=== PATIENT | male | born 1940 | race Caucasian/White ===

== ENCOUNTER 2019-03-19 09:25 | Observation (INO) | payer MEDICARE, BC ==
[2019-03-19] MEDS ORDERED: LORAZEPAM 2 MG/ML SOL IV ONE (10:06)
[2019-03-19] MEDS ORDERED: LEVETIRACETAM (PREMIX) 1 GM 1 GM/100 ML SOL IV ONE ×2 (10:06→10:09)
[2019-03-19] MEDS ORDERED: LORAZEPAM 2 MG/ML SOL ONE (10:09)
[2019-03-19 10:32] LABS: BASOPHILS % (AUTO) 1 % (0-3); EOSINOPHILS % (AUTO) 2 % (0-9); HEMATOCRIT 43 % (39-53); HEMOGLOBIN 14.4 gm/dl (13.5-17.7); LYMPHOCYTES % (AUTO) 8.6 % (10-50); MEAN CORPUSCULAR HEMOGLOBIN 32.9 pg (27.0-32.0); MEAN CORPUSCULAR HGB CONC 33.2 gm/dl (32.0-36.0); MONOCYTES % (AUTO) 6.7 % (0-12); NEUTROPHILS % (AUTO) 82.3 % (37-80)
[2019-03-19 10:33] LABS: MEAN CORPUSCULAR VOLUME 99 fL (80-100)
[2019-03-19 10:38] LABS: ALBUMIN 3.6 gm/dl (3.4-5.0); BILIRUBIN,TOTAL 0.7 mg/dl (0.2-1.0); CALCIUM 8.8 mg/dl (8.5-10.1); CARBON DIOXIDE 27.6 mEq/L (21-32); CREATININE 1.49 mg/dl (0.80-1.30); MAGNESIUM 2.1 mg/dl (1.8-2.4); TOTAL PROTEIN 7.4 gm/dl (6.4-8.2)
[2019-03-19 11:22] LABS: APPEARANCE,URINE Clear; BILIRUBIN,URINE NEGATIVE (NEGATIVE); COLOR,URINE Yellow; GLUCOSE, URINE (UA) NEGATIVE (NEGATIVE); KETONES,URINE NEGATIVE (NEGATIVE); LEUKOCYTE ESTERASE ,URINE NEGATIVE (NEGATIVE); NITRATE,URINE NEGATIVE (NEGATIVE); OCCULT BLOOD,URINE TRACE INTACT (NEG-TRACE); PH,URINE 6.5; UROBILINOGEN,URINE 0.2 (0.2-1.0 EU)
[2019-03-19 11:37] LABS: BACTERIA TRACE (< 1+); CRYSTALS NEGATIVE (0-3 AVE/HPF); EPITHELIAL CELLS 0-1 (SQUAMOUS); WBC,URINE 0-2 (0-5AV/HPF)
[2019-03-19] MEDS ORDERED: SODIUM CHLORIDE 0.9% FLUSH 10 ML SOL IV SCH (19:00)
[2019-03-19 20:03] VITALS: RESP 16
[2019-03-19] MEDS ORDERED: SIMVASTATIN 20 MG TAB PO SCH (21:00)
[2019-03-19] MEDS: METOPROLOL TARTRATE 25 MG TAB PO SCH (21:10)
[2019-03-19] MEDS: LEVETIRACETAM 250 MG TAB PO SCH (21:11)
[2019-03-19] MEDS: SODIUM CHLORIDE 0.9% FLUSH 10 ML SOL IV SCH (21:29)
[2019-03-20] MEDS: SODIUM CHLORIDE 0.9% FLUSH 10 ML SOL IV SCH (06:23)
[2019-03-20 08:05] VITALS: BP 104/58; PULSE 61; TEMP 98; O2SAT 95
[2019-03-20] MEDS: METOPROLOL TARTRATE 25 MG TAB PO SCH (08:09)
[2019-03-20] MEDS: LEVETIRACETAM 250 MG TAB PO SCH (08:09)
[2019-03-20] MEDS ORDERED: PNEUMOC 13-VAL CONJ-DIP CRM/PF 0.5 ML SYRINGE IM ONE (08:21)
[2019-03-20] MEDS ORDERED: LISINOPRIL 5 MG TAB PO SCH (09:00)
[2019-03-20] MEDS ORDERED: ASPIRIN EC 81 MG PO SCH (09:00)
== END 2019-03-20 10:35 | disposition home or self-care (01) | DRG 101 ==
LOC: ED 09:25 → UNDOADMOB 14:28 → ACUTE CARE 14:28
PROVIDERS: ADMIT Family Medicine; ATTEND Family Medicine
DX: G40.801 Other epilepsy, not intractable, with status epilepticus (principal); R41.82 Altered mental status, unspecified; R40.2362 Coma scale, best motor response, obeys commands, at arrival to emergency department; R40.2142 Coma scale, eyes open, spontaneous, at arrival to emergency department; R40.2242 Coma scale, best verbal response, confused conversation, at arrival to emergency department; R47.1 Dysarthria and anarthria; R47.02 Dysphasia
CPT/HCPCS: 36415; 70450; 80053; 81001; 82962; 83735; 85025; 90670; 93005; 93012; 96374; 99217; 99220; 99285; J2060; A9270-GY; G0008; J1953

== ENCOUNTER 2019-03-20 19:45 | Emergency (ER) | payer MEDICARE, BC ==
[2019-03-20 20:32] LABS: APPEARANCE,URINE Cloudy; BILIRUBIN,URINE 1+ (NEGATIVE); COLOR,URINE Brown; GLUCOSE, URINE (UA) NEGATIVE (NEGATIVE); KETONES,URINE TRACE (NEGATIVE); LEUKOCYTE ESTERASE ,URINE 3+ (NEGATIVE); NITRATE,URINE POSITIVE (NEGATIVE); OCCULT BLOOD,URINE 3+ (NEG-TRACE); PH,URINE >=9.0
[2019-03-20 20:48] LABS: BACTERIA 4+ (< 1+); CRYSTALS 4-8 TRIPLE PHOSPHATE (0-3 AVE/HPF); EPITHELIAL CELLS 0-2 (SQUAMOUS); ICTOTEST,URINE NEGATIVE (NEGATIVE); RBC,URINE TNTC (0-3AV/HPF); WBC,URINE 60-80 (0-5AV/HPF)
[2019-03-20 20:54] VITALS: BP 108/63; PULSE 66; RESP 18; TEMP 98.1; O2SAT 97
[2019-03-20] MEDS ORDERED: CIPROFLOXACIN HCL 500 MG TAB PO SCH (21:15)
[2019-03-20] MEDS ORDERED: CIPROFLOXACIN HCL 500 MG TAB PO ONE (21:23)
== END 2019-03-20 21:35 | disposition home or self-care (01) | DRG 690 ==
LOC: ED 19:45
DX: N39.0 Urinary tract infection, site not specified (principal); R31.9 Hematuria, unspecified
CPT/HCPCS: 81001; 87077; 87088; 87186; 99282; A9270-GY